=== PATIENT | female | born 1960 | race Caucasian/White ===

== ENCOUNTER → 2021-10-16 | Outpatient (CLI) | payer BC ==
--- NOTE | 2021-10-16 17:24 | US ---
EXAMINATION TYPE: US thyroid st tissue head/neck DATE OF EXAM: 10/16/2021 COMPARISON: NONE CLINICAL HISTORY: R22.0 SWELLING/MASS IN NECK. swelling GLAND SIZE: Right Lobe: 4.9 x 1.8 x 1.9 cm Overall Parenchyma: homogenous Left Lobe: 5.7 x 1.4 x 2.0 cm Overall Parenchyma: homogeneous Isthmus Thickness: .3 cm NODULES RIGHT: # of nodules measured on right: 1 1. 1.7 X 1.4 x 1.6 cm, mid , solid or almost completely solid, hypoechoic nodule, which is wider th an tall, with smooth margins, without echogenic foci. TR 4 lesion. Prior size: No prior LEFT: # of nodules measured on left: Multiple subcentimeter measured largest one. 1. 1.1 X .4 x .9 cm, lower , solid or almost completely solid, hypoechoic nodule, which is wider th an tall, with smooth margins, without echogenic foci. TR 4 lesion. Prior size: no prior ISTHMUS: # of nodules measured in the isthmus: 1 1. 1.7 x . X .8 x 1.0 cm solid or almost completely solid, hypoechoic nodule, which is wider than t all, with smooth margins, without echogenic foci. TR 4 lesion. Prior size: No prior Bilateral neck scanned, no evidence of lymphadenopathy. Fairly homogeneous normal-sized thyroid. IMPRESSION: Thyroid nodules as noted above. Bilateral nodules greater than 1.5 cm that are TR-4 lesio ns advise sampling. 2017 ACR TI-RADS LEVEL: TR-RADS 4 - Moderately Suspicious: Follow if > 1 cm, FNA if > 1.5 cm *Highest TI-RADS level nodule reported
== END | disposition home or self-care (01) ==
LOC: RADUSWWP 16:18
PROVIDERS: ATTEND Family Medicine
DX: E04.2 Nontoxic multinodular goiter (principal)
CPT/HCPCS: 76536